=== PATIENT | female | born 1970 | race African-American/Black ===

== ENCOUNTER 2018-02-19 19:09 | Emergency (ER) | payer SELFPAY ==
[2018-02-19] MEDS: GELATIN SPONGE SIZE 12-7MM SPONGE. TP (20:00)
[2018-02-19] MEDS ORDERED: CYCLOBENZAPRINE 10 MG TABLET. PO (20:00)
[2018-02-19] MEDS ORDERED: CYCLOBENZAPRINE 10 MG TABLET. (20:26)
[2018-02-19] MEDS: NAPROXEN 500 MG TABLET PO (20:45)
[2018-02-19] MEDS: DIPHTH,PERTUSS(ACELL),TET TOX 0.5 ML DISP.SYRIN. VAX IM (21:08)
== END 2018-02-19 21:10 | disposition home or self-care (01) ==
LOC: ER 19:09
DX: S61.102A Unspecified open wound of left thumb with damage to nail, initial encounter (principal); W26.8XXA Contact with other sharp object(s), not elsewhere classified, initial encounter; Y93.89 Activity, other specified; Y92.89 Other specified places as the place of occurrence of the external cause; Y99.8 Other external cause status
CPT/HCPCS: 90471; 90715; 99283